=== PATIENT | female | born 1990 | race Caucasian/White ===

== ENCOUNTER 2019-04-12 08:54 | Outpatient (CLI) | payer OTHER, SELFPAY ==
--- NOTE | 2019-04-12 09:00 | XR_ITS ---
WS: [id number] ABDOMEN 1 VIEW(S) HISTORY: renal calculus COMPARISON: 09/09/2018 Normal bowel gas pattern. No suspicious calcifications or masses. No bone abnormality. XR/XR KUB [id number] IMPRESSION: Normal abdomen. No renal or ureteral calcifications identified.
== END 2019-04-12 08:55 | disposition home or self-care (01) ==
PROVIDERS: Family Provider Nurse Practitioner Family; PCP Nurse Practitioner Family; Visit Provider Urology
DX: N20.0 Calculus of kidney (principal)
CPT/HCPCS: 74018; 81001

== ENCOUNTER 2019-04-24 10:01 | Outpatient (CLI) | payer OTHER, SELFPAY ==
--- NOTE | 2019-04-24 10:00 | XRR_ITS ---
PROCEDURE INFORMATION: Exam: XR Abdomen, 1 View Exam date and time: 04/24/2019 10:19 AM Age: 29 years old Clinical indication: Other: Left flank pain TECHNIQUE: Imaging protocol: XR of the abdomen. Views: Frontal supine view of the abdomen. 1 View. COMPARISON: CR XR KUB [id number] 04/12/2019 9:05 AM FINDINGS: Gastrointestinal tract: No bowel dilation. There is air-fluid level in left abdomen without dilation. Bones/joints: Unremarkable. There are 1.4 cm calcifications in the right upper quadrant consistent with gallstones. XR/XR KUB [id number] IMPRESSION: No acute findings.
== END 2019-04-24 10:02 | disposition home or self-care (01) ==
LOC: RAD 10:04
PROVIDERS: Family Provider Nurse Practitioner Family; PCP Nurse Practitioner Family; Visit Provider Nurse Practitioner Family
DX: K80.80 Other cholelithiasis without obstruction (principal)
CPT/HCPCS: 74018; 81001